=== PATIENT | male | born 1995 ===

== ENCOUNTER 2023-01-08 07:01 | Emergency (ER) | payer OTHER, SELFPAY ==
[2023-01-08 07:11] VITALS: BP 158/87; PULSE 78; RESP 18; TEMP 36.8; O2SAT 98; BMI 36.6
--- NOTE | 2023-01-08 08:05 | ED_ITS ---
HPI - Wound/Laceration General Chief Complaint: Wound/Laceration Stated Complaint: Leg infection on both legs Time Seen by Provider: 01/08/23 07:36 Source: patient Mode of arrival: ambulatory History of Present Illness HPI narrative: 27-year-old male who presents with a right anterior leg injury 2 weeks ago, has some concerns for residual erythema but denies any fevers or chills. Related Data Allergies Allergy/AdvReac Type Severity Reaction Status Date / Time No Known Allergies Allergy Verified 01/08/23 07:17 Review of Systems Review of Systems: Pertinent positives and negatives as stated in HPI [facility] Past Medical History Source: nursing notes reviewed Social History Social History Alcohol intake: current Alcohol intake frequency: a few times a week Smoked in Last 30 Days: No Use of substances other than those prescribed or required for medical reasons: Yes Substance Use Type: Marijuana Advance Directives: No Physical Exam Vital Signs: Vital Signs: Last Vital Signs Temp 98.3 F 01/08/23 07:11 Pulse 78 01/08/23 07:11 Resp 18 01/08/23 07:11 BP 158/87 H 01/08/23 07:11 Pulse Ox 98 01/08/23 07:11 O2 Del Method Room Air 01/08/23 07:11 BMI result Body Mass Index 36.6 VITAL SIGNS: Reviewed. GENERAL: Well developed, well nourished, in no acute distress. HEAD: Normocephalic/atraumatic EYES: PERRLA, EOMI EARS: Ext canals without abnormality NOSE: Nares patent bilateral OROPHARYNX: no oral lesions noted, posterior pharynx clear NECK: Supple, no adenopathy LUNGS: Normal breath sounds. No adventitious sounds or accessory muscle use. SpO2<98> CARDIOVASCULAR: Regular rate and rhythm without noted murmurs ABDOMEN: Soft, non-tender, non-distended with bowel sounds. MUSCULOSKELETAL: No tenderness, deformities, or effusions noted on gross inspection. EXTREMITIES: No cyanosis, clubbing or edema RLE: There is an anterior well-healing wound without surrounding erythema or induration. There is minimal 1+ pitting edema likely secondary to poor venous return. SKIN: Inspection of the skin reveals no rashes NEUROLOGIC: Alert and oriented x 4. Strength and sensation to light touch were grossly intact x 4. Medical Decision Making Medical Decision Making MDM Narrative: 27-year-old male with history and clinical presentation of well-healing wound, applied bacitracin and Chilo wrap for compression. My interpretation is this wound is healing well and does not need additional antibiotics but would benefit from compression. Differential Diagnosis Differential Diagnoses: The differential diagnosis associated with the presentation includes Please see the discussion above Admission/Observation Consideration of admission/observation: Escalation of care including admission/observation considered Please see the discussion above Discharge Plan Discharge Clinical Impression: Visit for wound check Patient Disposition: Home, Self-Care Instructions: Wound Healing and Your Diet (ED) Additional Instructions: 1. Continue to apply bacitracin or other [id number] antibiotic ointment, please avoid Neosporin. 2. Keep the Chilo wrap in place while up and walking around throughout the day. 3. Please set up an appointment with a primary care provider at your earliest convenience. Return to the ER for any worsening symptoms. Interventions: ED Discharge Assessment Last Done: 01/08/23 08:29
== END 2023-01-08 08:30 | disposition home or self-care (01) ==
PROVIDERS: Emergency Provider Student in an Organized Health Care Education/Training Program
DX: L53.9 Erythematous condition, unspecified (principal); Z48.00 Encounter for change or removal of nonsurgical wound dressing
CPT/HCPCS: 99282; 99283